=== PATIENT | female | born 1940 | race Hispanic/Latino ===

== ENCOUNTER 2018-03-05 11:37 | Day surgery (SDC) | payer MEDICARE ==
[~2018-03-05 11:37] MED LIST: IOPIDINE ONE; MYDRIACYL ONE; NEOFRIN ONE
[2018-03-05] MEDS ORDERED: IOPIDINE OD ONE ×2 (12:00→12:55)
[2018-03-05] MEDS ORDERED: MYDRIACYL OD ONE (12:00)
[2018-03-05] MEDS ORDERED: NEOFRIN OD ONE (12:00)
[2018-03-05 13:15] VITALS: BP 152/80
== END 2018-03-05 12:58 | disposition home or self-care (01) ==
LOC: OR 11:37
PROVIDERS: ATTEND Specialist
DX: H26.491 Other secondary cataract, right eye (principal); Z79.899 Other long term (current) drug therapy
CPT/HCPCS: 82962